=== PATIENT | male | born 1975 | race Caucasian/White ===

== ENCOUNTER 2017-09-19 14:23 | Emergency (ER) | payer BC ==
[2017-09-19 14:31] VITALS: O2SAT 100
[2017-09-19] MEDS ORDERED: Sodium Chloride 0.9% 1000 ML 1,000 ML IV STA ×3 (14:39→14:51)
[2017-09-19 14:48] LABS: Lactic Acid 2.6 (0.4-2.0)
[2017-09-19] MEDS ORDERED: Zofran 4 MG/2 ML VIAL IV ONE (14:52)
[2017-09-19] MEDS ORDERED: Zofran 4 MG/2 ML VIAL ONE (14:53)
--- NOTE | 2017-09-19 15:01 | ERPHSYRPT ---
- History of Present Illness Source: patient Exam Limitations: no limitations Patient Subjective Stated Complaint: Emesis beginning this AM. Triage Nursing Assessment: Pt presents to the ED with complaints of emesis beginning this AM and worsening through the day. Pt denies pain at this time. Pt is clammy on arrival to ED. No distress noted. Timing/Duration: today (6 AM) Modifying Factors: Improves With: other Associated Symptoms: nausea, vomiting, No abdominal pain, No shortness of breath , No heartburn, No diaphoresis, No cough, No chills, No chest pain, No headaches , No loss of appetite, No malaise, No rash, No syncope, No seizure, No weakness Hx Tetanus, Diphtheria Vaccination/Date Given: No Hx Influenza Vaccination/Date Given: No Hx Pneumococcal Vaccination/Date Given: No Immunizations Up to Date: No <KATIA ARCE - Last Filed: 09/19/17 19:44> <TRI LAMBERT - Last Filed: 09/19/17 19:51> - History of Present Illness Time Seen by Provider: 09/19/17 14:55 Physician History: 41-year-old white male arrives with complaint of vomiting since this morning is been worse throughout the day patient denies fever denies any pain Past medical history includes orthopedic surgery sinus surgery (KATIA ARCE) Allergies/Adverse Reactions: hydrocodone bitartrate [From Vicodin] Allergy (Verified 10/17/13 11:18) - Review of Systems Constitutional: No Fever, No Chills Eyes: No Symptoms Ears, Nose, & Throat: No Symptoms Respiratory: No Cough, No Dyspnea Cardiac: No Chest Pain, No Edema, No Syncope Abdominal/Gastrointestinal: Nausea, Vomiting, Other (patient spitting out brown material with vomiting), No Abdominal Pain, No Diarrhea Genitourinary Symptoms: No Dysuria Musculoskeletal: No Back Pain, No Neck Pain Skin: No Rash Neurological: No Symptoms Psychological: No Symptoms Endocrine: No Symptoms All Other Systems: Reviewed and Negative <KATIA ARCE - Last Filed: 09/19/17 19:44> - Past Medical History Pertinent Past Medical History: No Neurological History: No Pertinent History Cardiac History: No Pertinent History Respiratory History: No Pertinent History Endocrine Medical History: No Pertinent History Musculoskeletal History: Other - Past Surgical History Past Surgical History: Yes Musculoskeletal: Orthopedic Surgery Other Surgical History: SINUS SURGERY - Social History Smoking Status: Never smoker Exposure to second hand smoke: No Drug Use: none Patient Lives Alone: No <KATIA ARCE - Last Filed: 09/19/17 19:44> - Physical Exam General Appearance: moderate distress Eye Exam: PERRL/EOMI, eyes nml inspection Ears, Nose, Throat Exam: normal ENT inspection, TMs normal, pharynx normal, moist mucous membranes Neck Exam: normal inspection, non-tender, supple, full range of motion Respiratory Exam: normal breath sounds, lungs clear, No respiratory distress Cardiovascular Exam: regular rate/rhythm, normal heart sounds, normal peripheral pulses Gastrointestinal/Abdomen Exam: normal bowel sounds, other (Abdomen firm nontender) Back Exam: normal inspection, normal range of motion, No CVA tenderness, No vertebral tenderness Extremity Exam: normal inspection, normal range of motion, pelvis stable Neurologic Exam: alert, oriented x 3, cooperative, egg pasteurizer II-XII nml as tested, normal mood/affect, nml cerebellar function, nml station & gait, sensation nml, No motor deficits Skin Exam: normal color, warm, dry, No rash Lymphatic Exam: No adenopathy SpO2 Interpretation: normal (100%) SpO2: 100 Oxygen Delivery: Room Air <KATIA ARCE - Last Filed: 09/19/17 19:44> - Nursing Vital Signs Nursing Vital Signs: Initial Vital Signs Temperature 97.9 F 09/19/17 14:28 Pulse Rate 86 09/19/17 14:28 Respiratory Rate 16 09/19/17 14:28 Blood Pressure 147/95 09/19/17 14:28 O2 Sat by Pulse Oximetry 100 09/19/17 14:28 Pain Scale Pain Intensity 0 - Course Nursing assessment & vital signs reviewed: Yes EKG Interpreted by Me: RATE (73 bpm), Sinus Rhythm, NORMAL AXIS, Other (EKG: Sinus rhythm, 73 bpm, normal axis, no acute ST or T wave changes, normal EKG) <KATIA ARCE - Last Filed: 09/19/17 19:44> Ordered Tests: Active Orders 24 hr Category Date Time Status EKG-ER Only STAT Care 09/19/17 14:39 Active IV Insertion STAT Care 09/19/17 14:39 Active IV Insertion-2nd Peripheral STAT Care 09/19/17 14:57 Active Orthostatic Vital Signs STAT Care 09/19/17 17:39 Active AMYLASE Stat Lab 09/19/17 14:40 Completed BLOOD CULTURE Stat Lab 09/19/17 15:20 Received CBC W DIFF Stat Lab 09/19/17 14:39 Completed CMP Stat Lab 09/19/17 14:40 Completed LIPASE Stat Lab 09/19/17 14:40 Completed Lactic Acid Stat Lab 09/19/17 14:45 Completed Lactic Acid Stat Lab 09/19/17 17:04 Completed Occult Blood,Stool Other Stat Lab 09/19/17 16:40 Completed PROTIME WITH INR Stat Lab 09/19/17 14:40 Completed PTT Stat Lab 09/19/17 14:40 Completed UA W/RFX UR CULTURE Stat Lab 09/19/17 17:14 Completed Medication Summary Discontinued Medications Generic Name Dose Route Start Last Admin Trade Name Freq PRN Reason Stop Dose Admin Sodium Chloride 1,000 mls @ 999 mls/hr 09/19/17 14:39 09/19/17 14:55 Sodium Chloride 0.9% 1000 Ml IV 09/19/17 15:39 999 mls/hr .Q1H1M STA Administration Sodium Chloride 1,000 mls @ 999 mls/hr 09/19/17 14:51 09/19/17 14:58 Sodium Chloride 0.9% 1000 Ml IV 09/19/17 15:51 999 mls/hr .Q1H1M STA Administration Sodium Chloride 1,000 mls @ 999 mls/hr 09/19/17 14:51 09/19/17 16:04 Sodium Chloride 0.9% 1000 Ml IV 09/19/17 15:51 999 mls/hr .Q1H1M STA Administration Sodium Chloride Confirm 09/19/17 14:53 Sodium Chloride 0.9% 1000 Ml Administered 09/19/17 14:54 Dose 3,000 mls @ ud .ROUTE .STK-MED ONE Ondansetron HCl 4 mg 09/19/17 14:52 09/19/17 14:55 Zofran 4 Mg/2 Ml Vial IV 09/19/17 14:53 4 mg STAT ONE Administration Ondansetron HCl Confirm 09/19/17 14:53 Zofran 4 Mg/2 Ml Vial Administered 09/19/17 14:54 Dose 4 mg .ROUTE .STK-MED ONE Pantoprazole Sodium 40 mg 09/19/17 15:22 09/19/17 15:39 Protonix 40 Mg Iv IV 09/19/17 15:23 40 mg STAT ONE Administration Pantoprazole Sodium Confirm 09/19/17 15:38 Protonix 40 Mg Iv Administered 09/19/17 15:39 Dose 40 mg IV .STK-MED ONE Promethazine HCl 12.5 mg 09/19/17 16:33 09/19/17 16:39 Phenergan 25 Mg Inj IV 09/19/17 16:34 12.5 mg STAT ONE Administration Promethazine HCl Confirm 09/19/17 16:36 Phenergan 25 Mg Inj Administered 09/19/17 16:37 Dose 25 mg .ROUTE .STK-MED ONE Lab/Rad Data: Laboratory Result Diagrams 09/19/17 14:39 09/19/17 14:40 Laboratory Results 09/19/17 09/19/17 09/19/17 Range/Units 17:14 17:04 16:40 WBC (4.0-10.5) K/mm3 RBC (4.1-5.6) M/mm3 Hgb (12.5-18.0) gm/dl Hct (42-50) % MCV (78-100) fl MCH (26-32) pg MCHC (32-36) g/dl RDW (11.5-14.0) % Plt Count (150-450) K/mm3 MPV (6-9.5) fl Gran % (36.0-66.0) % Eos # (Auto) (0-0.5) Absolute Lymphs (auto) (1.0-4.6) Absolute Monos (auto) (0.0-1.3) Lymphocytes % (24.0-44.0) % Monocytes % (0.0-12.0) % Eosinophils % (0.00-5.0) % Basophils % (0.0-0.4) % Absolute Granulocytes (1.4-6.9) Basophils # (0-0.4) PT (8.83-12.87) SECONDS INR (0.8-3.0) APTT (24.1-36.1) SECONDS Sodium (137-145) mmol/L Potassium (3.5-5.1) mmol/L Chloride (98-107) mmol/L Carbon Dioxide (22-30) mmol/L Anion Gap (5-15) MEQ/L BUN (9-20) mg/dL Creatinine (0.66-1.25) mg/dL Estimated GFR ML/MIN Glucose (74-106) mg/dL Lactic Acid 1.4 (0.4-2.0) Calcium (8.4-10.2) mg/dL Total Bilirubin (0.2-1.3) mg/dL AST (17-59) U/L ALT (0-50) U/L Alkaline Phosphatase (38-126) U/L Serum Total Protein (6.3-8.2) g/dL Albumin (3.5-5.0) g/dL Amylase (30-110) U/L Lipase (23-300) U/L Ur Collection Type CCMS Urine Color YELLOW (YELLOW) Urine Appearance CLEAR (CLEAR) Urine pH 7.0 (5-6) Ur Specific [place] 1.015 (1.005-1.025) Urine Protein NEGATIVE (Negative) Urine Ketones MODERATE (NEGATIVE) Urine Blood NEGATIVE (0-5) Hammad/ul Urine Nitrite NEGATIVE (NEGATIVE) Urine Bilirubin NEGATIVE (NEGATIVE) Urine Urobilinogen NORMAL (0-1) mg/dL Ur Leukocyte Esterase NEGATIVE (NEGATIVE) Urine Culture Reflexed NO (NO) Urine Glucose NEGATIVE (NEGATIVE) mg/dL Stool Occult Blood NEGATIVE (Negative) Specimen Received 09-19-17 [id number] ABO Group Rh Factor Antibody Screen (NEGATIVE) 09/19/17 09/19/17 09/19/17 Range/Units 15:20 14:45 14:40 WBC (4.0-10.5) K/mm3 RBC (4.1-5.6) M/mm3 Hgb (12.5-18.0) gm/dl Hct (42-50) % MCV (78-100) fl MCH (26-32) pg MCHC (32-36) g/dl RDW (11.5-14.0) % Plt Count (150-450) K/mm3 MPV (6-9.5) fl Gran % (36.0-66.0) % Eos # (Auto) (0-0.5) Absolute Lymphs (auto) (1.0-4.6) Absolute Monos (auto) (0.0-1.3) Lymphocytes % (24.0-44.0) % Monocytes % (0.0-12.0) % Eosinophils % (0.00-5.0) % Basophils % (0.0-0.4) % Absolute Granulocytes (1.4-6.9) Basophils # (0-0.4) PT (8.83-12.87) SECONDS INR (0.8-3.0) APTT (24.1-36.1) SECONDS Sodium (137-145) mmol/L Potassium (3.5-5.1) mmol/L Chloride (98-107) mmol/L Carbon Dioxide (22-30) mmol/L Anion Gap (5-15) MEQ/L BUN (9-20) mg/dL Creatinine (0.66-1.25) mg/dL Estimated GFR ML/MIN Glucose (74-106) mg/dL Lactic Acid 2.6 H (0.4-2.0) Calcium (8.4-10.2) mg/dL Total Bilirubin (0.2-1.3) mg/dL AST (17-59) U/L ALT (0-50) U/L Alkaline Phosphatase (38-126) U/L Serum Total Protein (6.3-8.2) g/dL Albumin (3.5-5.0) g/dL Amylase (30-110) U/L Lipase 104 (23-300) U/L Ur Collection Type Urine Color (YELLOW) Urine Appearance (CLEAR) Urine pH (5-6) Ur Specific [place] (1.005-1.025) Urine Protein (Negative) Urine Ketones (NEGATIVE) Urine Blood (0-5) Hammad/ul Urine Nitrite (NEGATIVE) Urine Bilirubin (NEGATIVE) Urine Urobilinogen (0-1) mg/dL Ur Leukocyte Esterase (NEGATIVE) Urine Culture Reflexed (NO) Urine Glucose (NEGATIVE) mg/dL Stool Occult Blood (Negative) Specimen Received ABO Group Rh Factor POSITIVE Antibody Screen NEGATIVE (NEGATIVE) 09/19/17 09/19/17 09/19/17 Range/Units 14:40 14:40 14:39 WBC 9.8 (4.0-10.5) K/mm3 RBC 5.52 (4.1-5.6) M/mm3 Hgb 17.4 (12.5-18.0) gm/dl Hct 47.4 (42-50) % MCV 85.9 (78-100) fl MCH 31.5 (26-32) pg MCHC 36.7 H (32-36) g/dl RDW 12.7 (11.5-14.0) % Plt Count 187 (150-450) K/mm3 MPV 10.5 H (6-9.5) fl Gran % 82.1 H (36.0-66.0) % Eos # (Auto) 0.02 (0-0.5) Absolute Lymphs (auto) 1.36 (1.0-4.6) Absolute Monos (auto) 0.35 (0.0-1.3) Lymphocytes % 13.9 L (24.0-44.0) % Monocytes % 3.6 (0.0-12.0) % Eosinophils % 0.2 (0.00-5.0) % Basophils % 0.2 (0.0-0.4) % Absolute Granulocytes 8.02 H (1.4-6.9) Basophils # 0.02 (0-0.4) PT 11.4 (8.83-12.87) SECONDS INR 0.98 (0.8-3.0) APTT 31.0 (24.1-36.1) SECONDS Sodium 143 (137-145) mmol/L Potassium 4.0 (3.5-5.1) mmol/L Chloride 104 (98-107) mmol/L Carbon Dioxide 24 (22-30) mmol/L Anion Gap 18.3 H (5-15) MEQ/L BUN 15 (9-20) mg/dL Creatinine 0.86 (0.66-1.25) mg/dL Estimated GFR > 60.0 ML/MIN Glucose 160 H (74-106) mg/dL Lactic Acid (0.4-2.0) Calcium 9.9 (8.4-10.2) mg/dL Total Bilirubin 0.80 (0.2-1.3) mg/dL AST 49 (17-59) U/L ALT 84 H (0-50) U/L Alkaline Phosphatase 74 (38-126) U/L Serum Total Protein 8.3 H (6.3-8.2) g/dL Albumin 4.9 (3.5-5.0) g/dL Amylase 97 (30-110) U/L Lipase (23-300) U/L Ur Collection Type Urine Color (YELLOW) Urine Appearance (CLEAR) Urine pH (5-6) Ur Specific [place] (1.005-1.025) Urine Protein (Negative) Urine Ketones (NEGATIVE) Urine Blood (0-5) Hammad/ul Urine Nitrite (NEGATIVE) Urine Bilirubin (NEGATIVE) Urine Urobilinogen (0-1) mg/dL Ur Leukocyte Esterase (NEGATIVE) Urine Culture Reflexed (NO) Urine Glucose (NEGATIVE) mg/dL Stool Occult Blood (Negative) Specimen Received ABO Group Rh Factor Antibody Screen (NEGATIVE) - Progress Progress: improved <KATIA ARCE - Last Filed: 09/19/17 19:44> - Progress Progress: improved <TRI LAMBERT - Last Filed: 09/19/17 19:51> - Progress Progress Note: 09/19/17 15:06 41-year-old white male arrives with complaint of vomiting since this morning. On my arrival he is spitting out a brownish material. Patient denies any pain he states he has not been otherwise ill. Patient does have a lactate of 2.4 Patient does not appear to be septic he has pulse oximetry of 100% blood pressure 147/75 lungs are clear good perfusion to all extremities IV normal saline 3 L have been ordered for this person appropriate labs Zofran have been ordered 09/19/17 16:41 Patient feeling better after IV fluids. Pulse oximetry 100% good perfusion to all extremities blood pressure 146 /91 Lungs are clear heart is regular . Rectal was obtained no gross blood. 09/19/17 17:36 Patient feeling better. Lactate is normalized. No longer vomiting. Abdomen is rechecked no abdominal pain. I discussed case with Dr. Siddiqui. Will plan to check orthostatic vital signs. Plan home with Jhon. Follow-up with Dr. Siddiqui Friday. Plenty of fluids clear fluids only 24-48 hours if vomiting. Return for acute distress or for severe symptoms. 09/19/17 18:40 I had planned to send the patient home However he stated that he felt lightheaded and dizzy with sitting up. Will contact Dr. Siddiqui. 09/19/17 19:41 I put out a call to Dr. Siddiqui I have not heard back from him.. Planning to place patient on observation for IV fluids and anti-emetics. I've discussed the case with Dr. Lambert he will assume care of this patient and discussed it with Dr Siddiqui. Anticipate observation for IV fluids and anti-emetics. . (KATIA ARCE) 09/19/17 19:49 Pt feels better with no vomiting and lactic acid is 1.6. Pt will be sent home on zofran. Pt will F/U with Dr Siddiqui. (TRI LAMBERT) - Departure Time of Disposition: 17:37 Departure Disposition: Home Critical Care Time: No <KATIA ARCE - Last Filed: 09/19/17 19:44> - Departure Time of Disposition: 19:50 Departure Disposition: Home Critical Care Time: No <TRI LAMBERT - Last Filed: 09/19/17 19:51> - Departure Clinical Impression: Dehydration Nausea and vomiting Qualifiers: Vomiting type: unspecified Vomiting Intractability: non-intractable Qualified Code(s): R11.2 - Nausea with vomiting, unspecified Condition: Stable Referrals: MAGY SIDDIQUI MD [Primary Care Provider] - Instructions: Vomiting -- Adult, Nausea -- Adult Additional Instructions: Return to the ER if you should continue to have nausea, vomiting, diarrhea or abdominal pain. Prescriptions: Ondansetron [Zofran Odt] 4 mg PO QID PRN #15 tab.rapdis PRN Reason: Nausea/Vomiting
[2017-09-19] MEDS ORDERED: PROTONIX 40 MG IV IV ONE ×2 (15:22→15:38)
[2017-09-19 15:49] LABS: BASOPHIL % 0.2 % (0.0-0.4); Basophil (Absolute #) 0.02 (0-0.4); Eosinophil % 0.2 % (0.00-5.0); Eosinophil (Absolute #) 0.02 (0-0.5); Granulocyte Absolute (ANC) 8.02 (1.4-6.9); Granulocytes % 82.1 % (36.0-66.0); Hematocrit 47.4 % (42-50); Hemoglobin 17.4 gm/dl (12.5-18.0); Lymphocyte (Absolute #) 1.36 (1.0-4.6); Lymphocytes % 13.9 % (24.0-44.0); Mean Cell Volume 85.9 fl (78-100); Mean Corpuscular Hemoglobin 31.5 pg (26-32); Mean Corpuscular Hgb Concent. 36.7 g/dl (32-36); Mean Platelet Volume 10.5 fl (6-9.5); Monocyte (Absolute #) 0.35 (0.0-1.3); Monocytes % 3.6 % (0.0-12.0); Platelet Count 187 K/mm3 (150-450); Red Blood Count 5.52 M/mm3 (4.1-5.6); Red Cell Distribution Width 12.7 % (11.5-14.0); White Blood Count 9.8 K/mm3 (4.0-10.5)
[2017-09-19 16:04] LABS: INR 0.98 (0.8-3.0)
[2017-09-19] MEDS ORDERED: Phenergan 25 MG INJ IV ONE (16:33)
[2017-09-19] MEDS ORDERED: Phenergan 25 MG INJ ONE (16:36)
[2017-09-19 16:37] LABS: ALBUMIN 4.9 g/dL (3.5-5.0); ALKALINE PHOSPHATASE 74 U/L (38-126); AMYLASE 97 U/L (30-110); ANION GAP 18.3 MEQ/L (5-15); BLOOD UREA NITROGEN 15 mg/dL (9-20); CHLORIDE 104 mmol/L (98-107); Calcium 9.9 mg/dL (8.4-10.2); Carbon Dioxide 24 mmol/L (22-30); Creatinine 1 0.86 mg/dL (0.66-1.25); Glucose 160 mg/dL (74-106); SGOT/AST 49 U/L (17-59); SGPT/ALT 84 U/L (0-50); SODIUM 143 mmol/L (137-145); Total Protein 8.3 g/dL (6.3-8.2)
[2017-09-19 17:17] LABS: Appearance CLEAR (CLEAR); Bilirubin NEGATIVE (NEGATIVE); Blood NEGATIVE Ery/ul (0-5); Glucose NEGATIVE (NEGATIVE); Ketones MODERATE (NEGATIVE); Leukocyte Esterase NEGATIVE (NEGATIVE); Nitrite NEGATIVE (NEGATIVE); Protein,Urine Dip NEGATIVE (Negative); Specific Gravity 1.015 (1.005-1.025); Urobilinogen NORMAL mg/dL (0-1)
[2017-09-19 17:44] LABS: Antibody Screen NEGATIVE (NEGATIVE); RH TYPING POSITIVE
[2017-09-19 20:10] VITALS: BP 139/89; PULSE 92
== END 2017-09-19 20:09 | disposition home or self-care (01) ==
LOC: ED 14:23
DX: E86.0 Dehydration (principal); R11.2 Nausea with vomiting, unspecified; R42 Dizziness and giddiness
CPT/HCPCS: 36000; 36415; 80053; 81002; 82150; 82272; 83605; 83690; 85025; 85610; 85730; 86850; 86900; 86901; 87040; 93005; 96360; 96374; 96375; 99285; J2405; J2550

== ENCOUNTER 2019-08-28 16:21 | Emergency (ER) | payer BC ==
[2019-08-28] MEDS ORDERED: MOTRIN 600 MG PO ONE (16:46)
[2019-08-28] MEDS ORDERED: PERCOCET TABLET 5/325MG PO ONE (16:46)
[2019-08-28] MEDS ORDERED: ZOFRAN ODT 4 MG PO ONE (16:47)
[2019-08-28] MEDS ORDERED: Adacel Vial IM ONE ×2 (16:48→16:53)
[2019-08-28] MEDS ORDERED: PERCOCET TABLET 5/325MG ONE (16:52)
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
[2019-08-28] MEDS ORDERED: ZOFRAN ODT 4 MG ONE (16:53)
[2019-08-28] MEDS ORDERED: MOTRIN 600 MG ONE (16:53)
[2019-08-28 18:03] VITALS: BP 163/97; PULSE 100; O2SAT 98
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
== END 2019-08-28 18:04 | disposition home or self-care (01) ==
LOC: ED 16:21
DX: S49.91XA Unspecified injury of right shoulder and upper arm, initial encounter (principal); W18.39XA Other fall on same level, initial encounter; Y93.55 Activity, bike riding; S20.319A Abrasion of unspecified front wall of thorax, initial encounter; M25.511 Pain in right shoulder
CPT/HCPCS: 73030; 90471; 90715; 99284; Q0162; A9270-GY

== ENCOUNTER 2023-10-26 09:23 | Emergency (ER) | payer BC ==
[2023-10-26 09:33] VITALS: TEMP 98
--- NOTE | 2023-10-26 09:42 | ERPHSYRPT ---
- History of Present Illness Time Seen by Provider: 10/26/23 09:34 Source: patient Exam Limitations: no limitations Patient Subjective Stated Complaint: C/O honey bee sting to right thumb that happened yesterday Triage Nursing Assessment: Patient ambulated back to ER without difficulties. He is alert and oriented. No SOB; denies sore or itchy throat. No issues swallowing. Right thumb is red, hot, swollen, blisters noted. Edema noted to entire right hand. Physician History: Pt states yesterday he was mowing at home and was stung by a bee on his right thumb. This morning pt states his right hand is swollen and red; denies shortness of air, chest pain, difficulty swallowing, nausea, abdominal pain, fever. Allergies/Adverse Reactions: hydrocodone bitartrate [From Vicodin] Allergy (Intermediate, Verified 10/26/23 09:26) Home Medications: Lansoprazole [Prevacid 24Hr] 15 mg PO DAILY 08/28/19 [History] Hx Tetanus, Diphtheria Vaccination/Date Given: Yes Hx Influenza Vaccination/Date Given: No Hx Pneumococcal Vaccination/Date Given: No Immunizations Up to Date: Yes Travel Risk - International Travel Have you traveled outside of the country in past 3 weeks: No - Emerging Infectious Disease Are you exhibiting symptoms associated with any current EIDs: No - Review of Systems Constitutional: No Fever Ears, Nose, & Throat: No Throat Pain, No Throat Swelling Respiratory: No Dyspnea Cardiac: No Chest Pain Abdominal/Gastrointestinal: No Abdominal Pain, No Nausea Skin: Cellulitis (right hand) - Past Medical History Pertinent Past Medical History: No Neurological History: No Pertinent History Cardiac History: No Pertinent History Respiratory History: No Pertinent History Endocrine Medical History: No Pertinent History Musculoskeletal History: Fractures GI Medical History: GERD, Gallbladder Disease Other Medical History: [employer] - Past Surgical History Past Surgical History: Yes Gastrointestinal: Cholecystectomy Musculoskeletal: Orthopedic Surgery Other Surgical History: SINUS SURGERY, RIGHT SHOULDER RTC REPAIR IN 2016, left shoulder repair - Social History Smoking Status: Never smoker Exposure to second hand smoke: No Drug Use: none Patient Lives Alone: No - Social Determinants of Health Will the patient participate in the screening: Yes Do you worry about a steady place to live?: No Do you have any problems with any of the following?: No known problems In the past 12 months,have you had to go without utilities?: No Transportation Issues: No Has anyone in your support network made you feel unsafe?: No Have you or anyone in your house had to go without enough: No - Nursing Vital Signs Nursing Vital Signs: Initial Vital Signs Temperature 98 F 10/26/23 09:27 Pulse Rate 62 10/26/23 09:27 Respiratory Rate 18 10/26/23 09:27 Blood Pressure 133/103 10/26/23 09:27 O2 Sat by Pulse Oximetry 97 10/26/23 09:27 Pain Scale Pain Intensity 5 - Physical Exam General Appearance: alert Eyes, Ears, Nose, Throat Exam: TMs normal, pharynx normal, moist mucous membranes Neck Exam: normal inspection Cardiovascular/Respiratory Exam: normal breath sounds, heart sounds normal Abdominal Exam: soft (B.S. normal) Shoulder Exam: normal ROM Elbow/Forearm Exam: normal ROM Wrist Exam: normal ROM Hand Exam: normal ROM, swelling (mild edema and erythema of right hand with good sensation of all digits) Neuro/Tendon Exam: normal sensation Mental Status Exam: alert, cooperative SpO2 Interpretation: normal SpO2: 97 O2 Delivery: Room Air - Course Nursing assessment & vital signs reviewed: Yes Ordered Tests: Medication Summary Generic Name Dose Route Start Last Admin Trade Name Freq PRN Reason Stop Dose Admin Clindamycin HCl 300 mg 10/26/23 09:44 Clindamycin Hcl 150 Mg Capsule PO 10/26/23 09:45 STAT ONE Dexamethasone Sodium Phosphate 10 mg 10/26/23 09:44 Dexamethasone Sod Phosphate 10 Mg/Ml IM 10/26/23 09:45 STAT ONE - Progress Progress: unchanged Counseled pt/family regarding: diagnosis, need for follow-up - Departure Departure Disposition: Home Clinical Impression: Cellulitis of right hand, Local allergic reaction to bee venom Condition: Stable Critical Care Time: No Referrals: MAGY SIDDIQUI MD [Primary Care Provider] - Follow up/PCP as directed Instructions: Insect Bites and Stings (DC), Cellulitis (Skin Infection), Adult ED Additional Instructions: Elevate right hand 12 inches above heart level for the next 24 hours. Follow up with private doctor tomorrow. Forms: Work/School Release Form Prescriptions: Hydroxyzine HCl 25 mg [Atarax 25 mg] 25 mg PO Q4H PRN PRN #30 tablet PRN Reason: Allergies clindamycin HCL [Clindamycin HCl] 300 mg PO Q6H #40 cap
[2023-10-26] MEDS ORDERED: CLEOCIN 150 MG CAPSULE ONE (09:47)
[2023-10-26] MEDS ORDERED: DECADRON 10MG INJ. ONE (09:47)
[2023-10-26] MEDS: CLEOCIN 150 MG CAPSULE PO ONE (09:49)
[2023-10-26] MEDS: DECADRON 10MG INJ. IM ONE (09:49)
[2023-10-26 10:09] VITALS: BP 140/91; PULSE 86; RESP 17; O2SAT 98
== END 2023-10-26 10:10 | disposition home or self-care (01) ==
LOC: ED 09:23
DX: T63.441A Toxic effect of venom of bees, accidental (unintentional), initial encounter (principal); L03.113 Cellulitis of right upper limb; Z79.899 Other long term (current) drug therapy
CPT/HCPCS: 96372; 99283; J1100; A9270-GY